=== PATIENT | male | born 1985 | race African-American/Black ===

== ENCOUNTER 2018-12-20 18:14 | Emergency (ER) | payer OTHER ==
[~2018-12-20] VITALS: Ht 177.8 cm; Wt 72.6 kg
[2018-12-20] MEDS ORDERED: CEPHALEXIN 250MG CAPSULE PO ONE (20:00)
[2018-12-20] MEDS ORDERED: LIDOCAINE HCL/PF 1% 10 MG/ML 30ML VIAL INFIL ONE (20:00)
[2018-12-20] MEDS ORDERED: LIDOCAINE HCL 1% 20ML VIAL (Pyxis) INJ INFIL NR (20:15)
[2018-12-20 21:22] LABS: CLARITY URINE CLEAR (CLEAR); COLOR URINE YELLOW (YELLOW); KETONES URINE NEGATIVE (NEGATIVE); LEUKOCYTE ESTERASE URINE NEGATIVE (NEGATIVE); NITRITE URINE NEGATIVE (NEGATIVE); OCCULT BLOOD URINE NEGATIVE (NEGATIVE); PH URINE 5.5 (4.5-8.0); PROTEIN URINE 1+ (NEGATIVE); SPECIFIC GRAVITY URINE 1.023 (1.005-1.030); UROBILINOGEN URINE 0.2 E.U./dL (0.2-1.0)
[2018-12-20 21:51] VITALS: BP 138/61
== END 2018-12-20 22:00 | disposition home or self-care (01) ==
LOC: ER 18:38
DX: S11.81XA Laceration without foreign body of other specified part of neck, initial encounter (principal); S31.010A Laceration without foreign body of lower back and pelvis without penetration into retroperitoneum, initial encounter; S31.821A Laceration without foreign body of left buttock, initial encounter; S41.012A Laceration without foreign body of left shoulder, initial encounter; S41.112A Laceration without foreign body of left upper arm, initial encounter; X99.1XXA Assault by knife, initial encounter; Y93.89 Activity, other specified; Y92.521 Bus station as the place of occurrence of the external cause; F12.90 Cannabis use, unspecified, uncomplicated
CPT/HCPCS: 12002; 74176; 81003; 99284; J3490

== ENCOUNTER 2018-12-27 21:52 | Emergency (ER) | payer OTHER ==
[~2018-12-27] VITALS: Ht 180.3 cm; Wt 75.0 kg
[2018-12-28 01:06] VITALS: BP 120/66
== END 2018-12-28 01:07 | disposition home or self-care (01) ==
LOC: ER 21:52
DX: S41.012D Laceration without foreign body of left shoulder, subsequent encounter (principal); X58.XXXD Exposure to other specified factors, subsequent encounter; F12.10 Cannabis abuse, uncomplicated
CPT/HCPCS: 99281; Z7610

== ENCOUNTER 2024-07-06 10:10 | Emergency (ER) | payer MEDICAID, OTHER ==
[~2024-07-06] VITALS: Ht 180.3 cm; Wt 69.0 kg
[2024-07-06 10:17] VITALS: O2SAT 100
[2024-07-06] MEDS: IBUPROFEN 400MG TABLET PO ONE (11:28)
[2024-07-06] MEDS: ACETAMINOPHEN 325MG TABLET PO ONE (11:28)
[2024-07-06 12:20] VITALS: BP 125/71; PULSE 84; RESP 16; TEMP 36.8; O2SAT 100
== END 2024-07-06 12:21 | disposition home or self-care (01) ==
LOC: ER 10:37
DX: R51.9 Headache, unspecified (principal)
CPT/HCPCS: 99284